=== PATIENT | female | born 1985 | race Caucasian/White ===

== ENCOUNTER → 2018-04-19 | Outpatient (CLI) | payer OTHER ==
[~2018-04-19] MED LIST: CPR500T PO; ESTR2TAB4 PO; HYDR1TAB PO; METH4TAB PO; SULF1TAB35 PO
--- NOTE | 2018-04-19 14:07 | Diagnostic Imaging Report ---
PROCEDURE: US Gallbladder. TECHNIQUE: Multiple real-time grayscale images were obtained over the right upper quadrant in various projections. INDICATION: Right upper quadrant pain. FINDINGS: The previous gallbladder ultrasound exam performed on 05/07/2015 failed to show any sign of an acute abnormality. The common bile duct did seem prominent measuring 6.4 mm (normal 5-6 mm). On this study, the gallbladder is not well distended and consequently difficult to assess. Reportedly, the patient ate approximately 3 hours prior to the study. There is no evidence for cholelithiasis or acute cholecystitis, and the common bile duct is not as prominent as on the prior exam. The common bile duct measures 4.4 mm. The liver is not enlarged, and there is no focal mass involving the liver. The right kidney and pancreatic head are unremarkable. The pancreatic body and tail were obscured by bowel gas. IMPRESSION: 1. The gallbladder is not well distended, but there is no evidence for cholelithiasis or acute cholecystitis. The common bile duct is not abnormally dilated. 2. If clinical concern regarding an underlying abnormality of the gallbladder persists and further imaging is desired, then a nuclear medicine hepatobiliary scan would be recommended. Dictated by: Dictated on workstation # [id number]
== END ==
LOC: RAD 11:18
PROVIDERS: ATTEND Family Medicine
DX: R10.11 Right upper quadrant pain (principal)
CPT/HCPCS: 76705

== ENCOUNTER → 2021-10-03 | Outpatient (CLI) | payer BC, OTHER ==
[~2021-10-03] MED LIST changes: +CATHETER FLUSH 10 ML SYR IVP PRN
--- NOTE | 2021-10-03 15:10 | Diagnostic Imaging Report ---
INDICATION: Abdominal pain. EXAMINATION: Hepatobiliary scan. TECHNIQUE: 5.5 mCi of technetium 99m Choletec was given for the scan. Ensure was given 60 minutes into the study. FINDINGS: There is homogeneous uptake of isotope throughout the liver. The cystic duct and common duct are both patent. The gallbladder ejection fraction was measured at 57%. IMPRESSION: Normal hepatobiliary scan. Dictated by: Dictated on workstation # [id number]
== END ==
LOC: CARD 11:58
PROVIDERS: ATTEND Family Medicine
DX: R10.11 Right upper quadrant pain (principal)
CPT/HCPCS: 78227; A9537